=== PATIENT | female | born 1980 | race American Indian/Alaskan Native ===

== ENCOUNTER 2019-12-02 04:22 | Emergency (ER) | payer BC ==
[2019-12-02] MEDS ORDERED: ONDANSETRON 4 MG ODT TAB ONE (04:30)
[2019-12-02] MEDS: ONDANSETRON 4 MG ODT TAB PO ONE (04:35)
[2019-12-02] MEDS: METOCLOPRAMIDE 10 MG/2 ML INJ IV ONE ×2 (09:14→10:04)
[2019-12-02] MEDS: diphenhydrAMINE 50 MG/ML VIAL IV ONE ×2 (09:14→11:01)
[2019-12-02] MEDS: SODIUM CHLORIDE 0.9% 1000 ML 1,000 ML IV ONE (09:14)
[2019-12-02 09:15] VITALS: BP 156/81
--- NOTE | 2019-12-02 09:54 | Emergency Department Report ---
<MARK ANTHONY ELY - Last Filed: 12/02/19 09:49> ED Headache HPI - General Chief Complaint: Extremity Injury, Upper Stated Complaint: HEADACHE Time Seen by Provider: 12/02/19 08:07 - History of Present Illness Initial Comments: This is a 39-year-old female nontoxic, well nourished in appearance, no acute signs of distress presents to the ED with c/o of acute on chronic headache. Patient describes headache as diffuse with level of 3 out of 10. Patient denies thunderclap headache. Patient denies any radiation of pain. Patient denies any head trauma. Patient denies any visual changes. Patient denies worse headache. Patient stated that darkness makes headache better and bright lights make the headache worse. Patient did state 2 days ago she had a CT scan that was done and was within normal limits. Patient denies any numbness, tingling, fever, chills, nausea, vomiting, chest pain, shortness of breath, stiff neck. Patient denies facial drooping or one sided weakness. Patient denies any radiation of pain. Patient denies any allergies. Past medical history includes cluster headaches. Timing/Duration: episodic Quality: mild, achy Head Injury Location: other (diffuse) Recent Head Trauma: occasional headaches Associated Symptoms: denies symptoms. denies: confusion, fatigue, facial pain, fever/chills, flushing, loss of consciousness, nausea/vomiting, nasal congestion, nasal drainage, numbness in legs/feet, rash, seizures, sinus infection, stiff neck, vision changes, weakness Allergies/Adverse Reactions: Allergies midran Allergy (Uncoded 12/02/19 05:09) Unknown "face twisted up" Home Medications: Ambulatory Orders Butalb/Acetaminophen/Caffeine [Fioricet 50-300-40 mg CAP] 1 cap PO Q6HR PRN #12 cap 12/02/19 ED Review of Systems Constitutional: denies: chills, fever Eyes: denies: eye pain, eye discharge, vision change ENT: denies: ear pain, throat pain Respiratory: denies: cough, shortness of breath, wheezing Cardiovascular: denies: chest pain, palpitations Endocrine: no symptoms reported Gastrointestinal: denies: abdominal pain, nausea, diarrhea Genitourinary: denies: urgency, dysuria, discharge Musculoskeletal: denies: back pain, joint swelling, arthralgia Skin: denies: rash, lesions Neurological: headache. denies: weakness, paresthesias Psychiatric: denies: anxiety, depression Hematological/Lymphatic: denies: easy bleeding, easy bruising ED Past Medical Hx - Past Medical History Previous Medical History?: Yes Additional medical history: cluster ROMERO - Surgical History Past Surgical History?: No - Social History Smoking Status: Never Smoker Substance Use Type: None - Medications Home Medications: Home Medications Medication Instructions Recorded Confirmed Last Taken Type Butalb/Acetaminophen/Caffeine 1 cap PO Q6HR PRN #12 cap 12/02/19 Unknown Rx [Fioricet 50-300-40 mg CAP] ED Physical Exam - General Limitations: No Limitations General appearance: alert, in no apparent distress - Head Head exam: Present: atraumatic, normocephalic - Eye Eye exam: Present: normal appearance, PERRL, EOMI - Neck Neck exam: Present: normal inspection, full ROM. Absent: tenderness, meningismus, lymphadenopathy - Extremities Exam Extremities exam: Present: normal inspection, full ROM - Back Exam Back exam: Present: normal inspection, full ROM. Absent: tenderness, CVA tenderness (R), CVA tenderness (L), muscle spasm, paraspinal tenderness, vertebral tenderness, rash noted - Neurological Exam Neurological exam: Present: alert, oriented X3, normal gait - Expanded Neurological Exam Expanded Patient oriented to: Present: person, place, time Cranial nerves: EOM's Intact: Normal, Facial Sensation: Normal Cerebellar function: Finger to Nose: Normal Upper motor neuron: Pronator Drift: Normal, Sensory Extinction: Normal Motor strength exam: RUE: 5, LUE: 5, RLE: 5, LLE: 5 Best Eye Response (Rattan): (4) open spontaneously Best Motor Response (Christiane): (6) obeys commands Best Verbal Response (Christiane): (5) oriented Christiane Total: 15 - Psychiatric Psychiatric exam: Present: normal affect, normal mood - Skin Skin exam: Present: warm, dry, intact, normal color. Absent: rash ED Course - Reevaluation(s) Reevaluation #1: 12/02/19 09:52 Patient is speaking in full sentences with no signs of distress noted. ED Medical Decision Making - Medical Decision Making This is a 39-year-old female that presents with headache. Patient is stable and was examined by me. Patient is neurologically stable. There is no stiff neck or neck pain. Vital signs are stable. Patient is afebrile. Patient received Benadryl, Reglan, Toradol, and 1 L of normal saline which the patient stated that headache has subsided and resolved. Patient was instructed not to operate any machinery after discharged due to drowsiness of Benadryl. Patient stated that a family member will drive patient home. Patient is discharged with Fioricet. Patient was referred to Follow-up with a primary care/neurologist doctor in 3-5 days or if symptoms worsen and continue return to emergency room as soon as possible. At time of discharge, the patient does not seem toxic or ill in appearance. No acute signs of distress noted. Patient agrees to discharge treatment plan of care. No further questions noted by the patient. ED Disposition Clinical Impression: Chronic headache Qualifiers: Headache type: cluster Intractability: not intractable Qualified Code(s): G44.029 - Chronic cluster headache, not intractable Disposition: DC-01 TO HOME OR SELFCARE Is pt being admited?: No Does the pt Need Aspirin: No Condition: Stable Instructions: Butalbital/Acetaminophen/Caffeine (By mouth), Acute Headache (ED) Additional Instructions: Follow-up with a primary care and neurologist doctor in 3-5 days or if symptoms worsen and continue return to emergency room as soon as possible. Prescriptions: Butalb/Acetaminophen/Caffeine [Fioricet 50-300-40 mg CAP] 1 cap PO Q6HR PRN #12 cap PRN Reason: Headache Referrals: [facility] MD WALT [Primary Care Provider] - 3-5 Days PRIMARY MD MARLY [Referring] - 3-5 Days LON BURCH MD [Staff Physician] - 3-5 Days BAUDILIO DIAS MD [Staff Physician] - 3-5 Days [facility] [Outside] - 3-5 Days Forms: Work/School Release Form(ED) <ISAIAH WIGGINS P - Last Filed: 12/04/19 07:17> ED Review of Systems ROS: Stated complaint: HEADACHE Other details as noted in HPI ED Course Vital Signs 12/02/19 12/02/19 04:37 09:14 Temperature 98 F 98.6 F Pulse Rate 58 L 98 H Respiratory 18 18 Rate Blood Pressure 147/87 Blood Pressure 156/81 [Left] O2 Sat by Pulse 99 100 Oximetry ED Medical Decision Making - Medical Decision Making Attestation: Available for consultation Critical care attestation.: If time is entered above; I have spent that time in minutes in the direct care of this critically ill patient, excluding procedure time. ED Disposition Is pt being admited?: No
== END 2019-12-02 11:42 | disposition home or self-care (01) ==
LOC: ED 04:22
DX: R51 Headache (principal); G89.29 Other chronic pain; Z79.899 Other long term (current) drug therapy; Z88.8 Allergy status to other drugs, medicaments and biological substances
CPT/HCPCS: 96374; 96375; 96376; 99283; J1200; J2765; J7030; Q0162

== ENCOUNTER 2021-05-03 05:36 | Emergency (ER) | payer BC ==
[2021-05-03] MEDS ORDERED: dexAMETHasone 4 MG/ML VIAL IM STA (08:18)
[2021-05-03] MEDS ORDERED: SUMAtriptan SUCCINATE 6 MG/0.5 ML INJ SUB-Q ONE (08:19)
--- NOTE | 2021-05-03 09:52 | Emergency Department Report ---
ED General Adult HPI - General Chief complaint: Headache Stated complaint: MIGRAINES Time Seen by Provider: 05/03/21 08:13 Source: patient, EMS Mode of arrival: Wheelchair Limitations: No Limitations - History of Present Illness Initial comments: 41-year-old -[place] female patient presents with complaints of right- sided headache for the past week. Patient states she has a history of cluster migraines and that this feels consistent with her typical symptoms. Pain usually occurs at night and causes her eyes to water per patient. She does r eport some mild pain currently and states that tried multiple OTC medications without improvement in her symptoms. No dizziness, vision changes, memory loss, confusion, numbness/tingling/weakness in her limbs, difficulty with speech/ambulation, or head trauma per patient. Patient states she has an appointment with a neurologist next week. She states she has been getting cluster headaches since she was a child. - Related Data Previous Rx's Medication Instructions Recorded Last Taken Type Butalb/Acetaminophen/Caffeine 1 cap PO Q6HR PRN #12 cap 12/02/19 Unknown Rx [Fioricet 50-300-40 mg CAP] Prednisone [predniSONE 10 mg 10 mg PO .TAPER #1 tab.ds.pk 05/03/21 Unknown Rx (6-Day Pack, 21 Tabs)] SUMAtriptan 20 mg NS QDAY PRN #1 spray 05/03/21 Unknown Rx Allergies Allergy/AdvReac Type Severity Reaction Status Date / Time midran Allergy Unknown Uncoded 12/02/19 05:09 ED Review of Systems ROS: Stated complaint: MIGRAINES Other details as noted in HPI Constitutional: denies: chills, diaphoresis, fever, malaise, weakness Respiratory: denies: cough, shortness of breath Cardiovascular: denies: chest pain Gastrointestinal: nausea, vomiting. denies: abdominal pain Neurological: headache. denies: numbness, paresthesias, confusion, abnormal gait ED Past Medical Hx - Past Medical History Hx Headaches / Migraines: Yes Additional medical history: cluster ROMERO - Surgical History Past Surgical History?: No - Social History Smoking Status: Never Smoker Substance Use Type: None - Medications Home Medications: Home Medications Medication Instructions Recorded Confirmed Last Taken Type Butalb/Acetaminophen/Caffeine 1 cap PO Q6HR PRN #12 cap 12/02/19 Unknown Rx [Fioricet 50-300-40 mg CAP] Prednisone [predniSONE 10 mg 10 mg PO .TAPER #1 tab.ds.pk 05/03/21 Unknown Rx (6-Day Pack, 21 Tabs)] SUMAtriptan 20 mg NS QDAY PRN #1 spray 05/03/21 Unknown Rx ED Physical Exam - General Limitations: No Limitations General appearance: alert, in no apparent distress - Head Head exam: Present: atraumatic, normocephalic - Eye Eye exam: Present: normal appearance, PERRL, EOMI. Absent: scleral icterus - Neck Neck exam: Present: normal inspection - Respiratory Respiratory exam: Absent: respiratory distress - Cardiovascular Cardiovascular Exam: Present: regular rate, normal rhythm - GI/Abdominal GI/Abdominal exam: Present: soft. Absent: tenderness - Neurological Exam Neurological exam: Present: alert, oriented X3, CN II-XII intact, normal gait. Absent: motor sensory deficit - Expanded Neurological Exam Expanded Cerebellar function: Finger to Nose: Normal, Heel to Mejia: Normal, Romberg: Normal - Psychiatric Psychiatric exam: Present: normal affect, normal mood - Skin Skin exam: Present: warm, dry, intact, normal color. Absent: rash ED Course Vital Signs 05/03/21 06:03 Temperature 97.6 F Pulse Rate 108 H Respiratory 20 Rate Blood Pressure 170/77 [Left] O2 Sat by Pulse 100 Oximetry ED Medical Decision Making - Medical Decision Making 41-year-old -[place] female patient presents with complaints of right- sided headache for the past week. Patient states she has a history of cluster migraines and that this feels consistent with her typical symptoms. Pain usually occurs at night and causes her eyes to water per patient. She does report some mild pain currently and states that tried multiple OTC medications without improvement in her symptoms. No dizziness, vision changes, memory loss, confusion, numbness/tingling/weakness in her limbs, difficulty with speech/ambulation, or head trauma per patient. Patient states she has an appointment with a neurologist next week. She states she has been getting cluster headaches since she was a child. Patient placed on 12 L of oxygen and given sumatriptan IM along with Decadron. She states her symptoms have completely resolved. Patient to continue follow-up with the neurologist as scheduled. Will discharge home with sumatriptan and prednisone. Discussed signs and symptoms that should prompt immediate return to the emergency department in detail with patient who verbalizes understanding. Patient is well-appearing, her vitals are normal, she is stable for discharge home. Critical care attestation.: If time is entered above; I have spent that time in minutes in the direct care of this critically ill patient, excluding procedure time. ED Disposition Clinical Impression: Migraine-cluster headache syndrome Disposition: TO HOME OR SELFCARE Is pt being admited?: No Condition: Stable Instructions: Cluster Headache Additional Instructions: Please follow-up with your neurologist as scheduled Prescriptions: Prednisone [predniSONE 10 mg (6-Day Pack, 21 Tabs)] 10 mg PO .TAPER #1 tab.ds.pk SUMAtriptan 20 mg NS QDAY PRN #1 spray PRN Reason: Headache Referrals: [facility] [Other] - 3-5 Days
[2021-05-03 10:18] VITALS: BP 142/65
== END 2021-05-03 11:32 | disposition home or self-care (01) ==
LOC: ED 05:36
DX: G44.009 Cluster headache syndrome, unspecified, not intractable (principal); Z79.899 Other long term (current) drug therapy; Z88.8 Allergy status to other drugs, medicaments and biological substances
CPT/HCPCS: 96372; 99283; J1100; J3030